=== PATIENT | female | born 1995 | race Caucasian/White ===

== ENCOUNTER 2023-11-27 17:57 | Inpatient (IN) | payer BC ==
[2023-11-27] MEDS ORDERED: Zolpidem Tartrate 5 MG TAB PO PRN (20:09)
[2023-11-27] MEDS ORDERED: Promethazine HCl 25 MG/ML VIAL IM PRN (20:09)
[2023-11-27] MEDS ORDERED: Diphenoxylate HCl/Atropine Tablet PO PRN (20:09)
[2023-11-27] MEDS ORDERED: Ibuprofen 800 MG TAB PO PRN (20:09)
[2023-11-27] MEDS ORDERED: Ondansetron PF 4 MG/2 ML Vial IVP PRN (20:09)
[2023-11-27] MEDS ORDERED: Lidocaine 1% (PF) 30 ML VIAL SC PRN (20:09)
[2023-11-27] MEDS ORDERED: HYDROcodone/Acetaminophen 5/325 mg Tablet PO PRN (20:09)
[2023-11-27] MEDS ORDERED: Acetaminophen 500 MG TAB PO PRN (20:09)
[2023-11-27] MEDS ORDERED: hydrALAZINE 20 MG/ML VIAL SLOW IVP PRN (20:09)
[2023-11-27] MEDS ORDERED: Misoprostol 200 MCG TAB PR PRN (20:09)
[2023-11-27] MEDS ORDERED: Carboprost 250 MCG/ML AMP IM PRN (20:09)
[2023-11-27] MEDS ORDERED: fentaNYL 50 mcg/mL 1 mL Vial SLOW IVP PRN (20:09)
[2023-11-27 20:47] VITALS: BMI 30.9
[2023-11-27] MEDS: Lactated Ringer's 1,000 ML IV SCH (21:03)
[2023-11-27] MEDS ORDERED: Oxytocin 30 units/NS 500 ML 500 ML IV SCH (21:30)
[2023-11-27 21:36] LABS: Hematocrit 33.1 % (34.9-44.5); Hemoglobin 11.3 g/dL (12.0-15.5); Mean Corpuscular HGB CONC 34.1 g/dL (32.0-36.0); Mean Corpuscular Hemoglobin 29.1 pg (27.0-33.0); Mean Corpuscular Volume 85.3 fL (81.6-98.3); Mean Platelet Volume 10.9 fL (7.4-10.4); Platelet Count 262 10x3/uL (150-450); RBC Distribution Width 13.7 % (11.5-14.5); Red Blood Cell (RBC) Count 3.88 10x6/uL (3.90-5.03); White Blood Cell (WBC) Count 11.3 10x3/uL (3.5-10.5)
[2023-11-27 21:40] LABS: ALT (SGPT) 20 U/L (8-55); AST (SGOT) 19 U/L (5-34); Albumin 3.4 g/dL (3.5-5.0); Alkaline Phosphatase 156 U/L (40-110); Anion Gap 15 mmol/L (10-20); BUN (Urea Nitrogen) 7 mg/dL (7.0-18.7); Bilirubin, Total 0.3 mg/dL (0.2-1.2); Calc. Creatinine Clearance 178 mL/min (70-130); Calcium 9.3 mg/dL (7.8-10.44); Carbon Dioxide 21 mmol/L (22-29); Chloride 105 mmol/L (98-107); Estimated GFR 126; Globulin 3.6 g/dL (2.4-3.5); Glucose 74 mg/dL (70-105); Sodium 137 mmol/L (136-145)
[2023-11-27 22:15] LABS: Syphilis Antibody Nonreactive (Nonreactive); Syphilis Antibody Index 0.04 S/CO (<1.00 Non-Reactive)
[2023-11-27 22:16] LABS: HBsAg Index 0.16 S/CO (0-0.99); Hep B Surf Ag - L&D Non-Reactive S/CO (NonReactive)
[2023-11-28] MEDS: Misoprostol 100 MCG TAB VAG SCH (07:13)
[2023-11-28] MEDS: Oxytocin 30 units/NS 500 ML 500 ML IV SCH (10:54)
[2023-11-28] MEDS: fentaNYL/Ropivacaine Epidural 100 ML ONE (12:40)
[2023-11-28] MEDS ORDERED: Acetaminophen 325 MG TAB PO PRN (13:08)
[2023-11-28] MEDS ORDERED: Naloxone HCl 0.4 mg/ml Vial IVP PRN ×2 (13:08)
[2023-11-28] MEDS ORDERED: ePHEDrine Sulfate 50 MG/10 ML VIAL SLOW IVP PRN (13:08)
[2023-11-28] MEDS ORDERED: Promethazine HCl 25 MG/ML VIAL IM PRN (13:08)
[2023-11-28] MEDS ORDERED: diphenhydrAMINE 50 MG/ML VIAL IVP PRN (13:08)
[2023-11-28] MEDS ORDERED: Lactated Ringer's 500 ML IV PRN (13:08)
[2023-11-28] MEDS ORDERED: Moisturizing Cream (Eucerin) 113 GM JAR TOP PRN (13:08)
[2023-11-28] MEDS ORDERED: Ondansetron PF 4 MG/2 ML Vial IVP PRN (13:08)
[2023-11-28] MEDS ORDERED: Communication Order-Pharmacy FS SCH (13:15)
[2023-11-28] MEDS: fentaNYL 2 mcg/Ropivacaine 0.2% Epidural 100 ML CADD EPIDURAL SCH (23:02)
[2023-11-29] MEDS: Azithromycin 500 MG VIAL ONE (02:35)
[2023-11-29] MEDS: CEFAZOLIN 2 GM VIAL ONE (02:35)
[2023-11-29] MEDS ORDERED: diphenhydrAMINE 50 MG/ML VIAL IVP PRN (02:49)
[2023-11-29] MEDS ORDERED: Moisturizing Cream (Eucerin) 113 GM JAR TOP PRN (02:49)
[2023-11-29] MEDS ORDERED: fentaNYL 50 mcg/mL 1 mL Vial SLOW IVP PRN (02:49)
[2023-11-29] MEDS ORDERED: Promethazine HCl 25 MG/ML VIAL IM PRN (02:49)
[2023-11-29] MEDS ORDERED: Naloxone HCl 0.4 mg/ml Vial IV PRN (02:49)
[2023-11-29] MEDS ORDERED: Morphine 4 MG/ML VIAL SLOW IVP PRN (02:49)
[2023-11-29] MEDS ORDERED: Meperidine HCl/PF 25 MG (1 mL) VIAL SLOW IVP PRN (02:49)
[2023-11-29] MEDS ORDERED: Naloxone HCl 0.4 mg/ml Vial IVP PRN ×2 (02:49)
[2023-11-29] MEDS ORDERED: Ondansetron PF 4 MG/2 ML Vial IVP PRN ×2 (02:49)
[2023-11-29] MEDS: Clindamycin/D5W 900 MG in Premix 1 BAG IVPB SCH (02:52)
[2023-11-29] MEDS ORDERED: Communication Order-Pharmacy FS SCH (03:00)
[2023-11-29] MEDS: Ketorolac Tromethamine 30 MG (1 mL) VIAL IVP SCH (05:14)
[2023-11-29] MEDS: Labetalol HCl 100 MG TAB PO SCH (09:19)
[2023-11-29] MEDS: Clindamycin/D5W 900 mg/50 ml Premix Bag ONE (10:15)
[2023-11-29] MEDS: Erythromycin Base 0.5% Oint 1 GM TUBE ONE (10:16)
[2023-11-29] MEDS: Phytonadione Neonatal 1 MG/0.5 ML AMP ONE (10:16)
[2023-11-29] MEDS: Ondansetron PF 4 MG/2 ML Vial ONE (10:17)
[2023-11-29] MEDS: Dexamethasone 10 MG/ML VIAL ONE (10:17)
[2023-11-29] MEDS: Oxytocin 10 UNITS/ML VIAL ONE ×2 (10:17→10:18)
[2023-11-29] MEDS: Morphine PF 10 MG/10 ML VIAL ONE (10:17)
[2023-11-29] MEDS: PHENYLEPHRINE-NS 100 MCG/ML 10 ML SYRINGE ONE (10:17)
[2023-11-29] MEDS: Gentamicin Sulfate 120 MG in Premix 1 BAG IVPB SCH (10:18)
[2023-11-29] MEDS: Ketorolac Tromethamine 30 MG (1 mL) VIAL IVP PRN (11:08)
[2023-11-29] MEDS ORDERED: HYDROcodone/Acetaminophen 5/325 mg Tablet PO PRN ×2 (20:02)
[2023-11-30] MEDS: Ibuprofen 800 MG TAB PO SCH (05:20)
[2023-11-30] MEDS: Hepatitis B Vaccine 10 MCG/0.5 ML SYR ONE (07:12)
[2023-12-01 13:57] VITALS: BP 131/77; TEMP 98.4
== END 2023-12-01 14:35 | disposition home or self-care (01) | DRG 788 ==
LOC: CSHLD 17:57 → CSHPED 11-29 06:00
PROVIDERS: ADMIT Student in an Organized Health Care Education/Training Program; ATTEND Student in an Organized Health Care Education/Training Program
PROC: 10D00Z1 Extraction of Products of Conception, Low, Open Approach (ICD-10-PCS; principal; 2023-11-29)
DX: O10.92 Unspecified pre-existing hypertension complicating childbirth (principal); Z3A.38 38 weeks gestation of pregnancy; Z37.0 Single live birth; E03.9 Hypothyroidism, unspecified; O99.284 Endocrine, nutritional and metabolic diseases complicating childbirth; E05.90 Thyrotoxicosis, unspecified without thyrotoxic crisis or storm; O76 Abnormality in fetal heart rate and rhythm complicating labor and delivery; Z88.1 Allergy status to other antibiotic agents; Z79.82 Long term (current) use of aspirin; Z79.899 Other long term (current) drug therapy
CPT/HCPCS: 36415; 51702; 80053; 85027; 86780; 86850; 86900; 86901; 87340; 88307; J0456; J1100; J1885; J2274; J2405; J2590; J3490; J7120